=== PATIENT | female | born 1955 | race Two or more races ===

== ENCOUNTER 2019-07-02 15:22 | Inpatient (IN) | payer OTHER ==
[~2019-07-02] VITALS: Ht 165.1 cm; Wt 68.0 kg
[2019-07-24] MEDS ORDERED: OXYC1TAB9 PO (12:38)
[2019-07-24] MEDS ORDERED: HYOSCYAMINE0.125 M1 SL (12:38)
[2019-07-24] MEDS ORDERED: DICLOFENAC SODI75 MG PO (12:39)
[2019-07-24] MEDS ORDERED: PANTOPRAZOLE SO40 MG PO (12:40)
== END 2019-07-24 14:03 | disposition home or self-care (01) | DRG 330 ==
LOC: SURG 07-14 12:15 → SURH 07-21 10:32 → O/R 07-21 10:32 → SURG 07-21 10:32 → SURH 07-23 13:07
PROVIDERS: ADMIT Surgery
PROC: 0D1N4Z4 Bypass Sigmoid Colon to Cutaneous, Percutaneous Endoscopic Approach (ICD-10-PCS; 2019-07-21)
PROC: 07BB4ZX Excision of Mesenteric Lymphatic, Percutaneous Endoscopic Approach, Diagnostic (ICD-10-PCS; 2019-07-21)
PROC: 07BD4ZX Excision of Aortic Lymphatic, Percutaneous Endoscopic Approach, Diagnostic (ICD-10-PCS; 2019-07-21)
PROC: 4A19X1Z Monitoring of Respiratory Capacity, External Approach (ICD-10-PCS; 2019-07-21)
PROC: 3E0F7GC Introduction of Other Therapeutic Substance into Respiratory Tract, Via Natural or Artificial Opening (ICD-10-PCS; 2019-07-21)
PROC: 0DBP4ZZ Excision of Rectum, Percutaneous Endoscopic Approach (ICD-10-PCS; principal; 2019-07-21 14:45)
DX: C18.7 Malignant neoplasm of sigmoid colon (principal); D62 Acute posthemorrhagic anemia

== ENCOUNTER 2020-07-20 06:00 | Day surgery (SDC) | payer OTHER ==
[~2020-07-20 06:00] MED LIST: DICLOFENAC SODI75 MG PO; HYOSCYAMINE0.125 M1 SL; OXYC1TAB9 PO; PANTOPRAZOLE SO40 MG PO
== END 2020-07-20 13:30 | disposition home or self-care (01) ==
LOC: AMB-ENDOS 06:00
PROVIDERS: ATTEND Surgery
DX: K62.89 Other specified diseases of anus and rectum (principal); Z20.822 Contact with and (suspected) exposure to COVID-19

== ENCOUNTER 2022-11-27 07:23 | Day surgery (SDC) | payer OTHER ==
[~2022-11-27] VITALS: Ht 165.1 cm; Wt 73.0 kg
[~2022-11-27 07:23] MED LIST changes: +ELIQUIS5 MG PO
[2022-11-27] MEDS ORDERED: TRAM1TAB98 PO (14:17)
== END 2022-11-27 16:15 | disposition home or self-care (01) ==
LOC: CIR.AMB 07:23
PROVIDERS: ATTEND Surgery
DX: Z85.038 Personal history of other malignant neoplasm of large intestine (principal); I10 Essential (primary) hypertension; Z20.822 Contact with and (suspected) exposure to COVID-19